=== PATIENT | male | born 1980 | race Caucasian/White ===

== ENCOUNTER 2020-11-08 20:36 | Emergency (ER) | payer MEDICAID ==
[~2020-11-08] VITALS: Ht 167.6 cm; Wt 70.8 kg
[2020-11-08 20:55] VITALS: BP 119/80; Ht 167.6 cm; Wt 70.8 kg
== END 2020-11-08 21:20 | disposition home or self-care (01) ==
LOC: ED 20:36
DX: S00.01XA Abrasion of scalp, initial encounter (principal); Z72.89 Other problems related to lifestyle; W19.XXXA Unspecified fall, initial encounter; Y93.89 Activity, other specified; Y92.89 Other specified places as the place of occurrence of the external cause; Y99.8 Other external cause status
CPT/HCPCS: 90715